=== PATIENT | female | born 1975 | race Caucasian/White ===

== ENCOUNTER 2019-06-12 07:56 | Outpatient (CLI) | payer BC, SELFPAY ==
[2019-06-12 09:29] LABS: ALT 10 U/L (14-59); AST 12 U/L (15-37); Albumin 3.3 g/dL (3.4-5.0); Alkaline Phosphatase 89 U/L (46-116); Anion Gap 8.8 mmol/L (3-11); BUN 9 mg/dL (7-18); Bilirubin, Total 0.2 mg/dL (0.2-1.0); CO2 28.2 mmol/L (21.0-32.0); CREATININE 0.77 mg/dL (0.55-1.02); Calcium 8.5 mg/dL (8.5-10.1); Calculated LDL 104 mg/dL (<100); Chloride 104 mmol/L (98-107); Cholesterol 188 mg/dL (<200); Glucose 89 mg/dL (74-106); HDL Cholesterol 67 mg/dL (40-60); Potassium 4.3 mmol/L (3.5-5.1); Sodium 141 mmol/L (136-145); TSH (W/Ref FT4) 2.17 uIU/mL (0.36-3.74); Total Protein 6.6 g/dL (6.4-8.2); Triglyceride 85 mg/dL (<150)
== END 2019-06-12 08:16 ==
PROVIDERS: PCP Student in an Organized Health Care Education/Training Program; Visit Provider Student in an Organized Health Care Education/Training Program
DX: E86.0 Dehydration (principal); I10 Essential (primary) hypertension; E03.9 Hypothyroidism, unspecified; Z13.220 Encounter for screening for lipoid disorders
CPT/HCPCS: 36415; 80053; 80061; 84443

== ENCOUNTER 2020-02-27 02:21 | Outpatient (CLI) | payer BC, SELFPAY ==
[2020-03-01 23:19] LABS: Patient Race White; SARS-CoV-2 RNA Undetected (Undetected); SARS-CoV-2 Specimen Source Nasal
== END 2020-02-27 02:41 ==
PROVIDERS: PCP Student in an Organized Health Care Education/Training Program; Visit Provider Student in an Organized Health Care Education/Training Program
DX: R06.2 Wheezing (principal)
CPT/HCPCS: U0003

== ENCOUNTER 2020-09-03 02:00 | Outpatient (CLI) | payer BC, SELFPAY ==
[2020-09-03 13:40] LABS: Calculated LDL 101 mg/dL (<100); Cholesterol 192 mg/dL (<200); HDL Cholesterol 79 mg/dL (40-60); Triglyceride 63 mg/dL (<150)
== END 2020-09-03 02:01 | disposition home or self-care (01) ==
LOC: LBO 02:00
PROVIDERS: PCP Student in an Organized Health Care Education/Training Program; Visit Provider Student in an Organized Health Care Education/Training Program
DX: E03.9 Hypothyroidism, unspecified (principal); Z13.220 Encounter for screening for lipoid disorders
CPT/HCPCS: 36415; 80061; 84443

== ENCOUNTER 2020-12-09 12:00 | Outpatient (REF) | payer BC, SELFPAY ==
--- NOTE | 2020-12-09 10:45 | PAPFT_PTH ---
PATIENT: Tatiana Reilly LOC: [facility] U#:[id number] AGE/SX: 45/F ROOM: RE12/09/[address]: FALLON Reis : 1975 BED: DIS: 12/09/2020 SPEC #: [id number] RECD: 12/09/20 13:16 STATUS: NNEKA REMonica #: [id number] FLOR: 12/09/20 10:[address]: Skylar Miller DEPT: PENDING SALE TO [facility] Cytology RECD BY: Marsha Julio ENTERED: 12/09/20 13:17 SP TYPE: PAPFT OTHR DR: Jaleesa Zamora, Tissues: 1 - CX/ENDOCX FOR PAP SMEARS Procedures: PAP THIN PREP/UVM Screening HPV DNA PROBE Comments: [id number]
== END 2020-12-09 12:01 | disposition home or self-care (01) ==
LOC: LBN 12:00
PROVIDERS: PCP Student in an Organized Health Care Education/Training Program; Visit Provider Nurse Practitioner Family
DX: Z12.4 Encounter for screening for malignant neoplasm of cervix (principal); Z11.51 Encounter for screening for human papillomavirus (HPV)
CPT/HCPCS: 88142; 87624

== ENCOUNTER 2020-12-10 01:41 | Outpatient (CLI) | payer BC, SELFPAY ==
--- NOTE | 2020-12-10 13:00 | NS.NUTBLAN_ITS ---
Tatiana was referred to Medical Nutrition Therapy for weight management. 5'2 225 lbs BMI 40. Tatiana reports gaining > 40 lbs in last couple years since starting meds for her bipolar disease. Meds include seroquel, trileptal, lamictal. Also takes levothyroxine for hypothyroidism. Recently dx with HTN. Diet recall indicates mostly well balanced healthy meals with sedentary life style. Goal Wt: 170-175 lbs. Session today focused on how to follow a lower carb, higher protein diet to help promote weight loss. Suspect insulin resistance may be causing excess weight after starting bi polar meds known to affect glycemic variabls. Provided meal plan and encouraged Tatiana to log her meals on a phone madelyn. Goal is for 5-10 lbs per week by following [id number] kcal, 80-100 g carb, 60-70 g protein diet with 14 miles of waking per week. No follow up planned. Will call Tatiana next month for update on progress.
== END 2020-12-10 01:42 | disposition home or self-care (01) ==
LOC: DS 01:41
PROVIDERS: PCP Student in an Organized Health Care Education/Training Program; Visit Provider Dietitian, Registered
DX: E66.8 Other obesity (principal); F31.9 Bipolar disorder, unspecified; Z79.899 Other long term (current) drug therapy; Z68.41 Body mass index [BMI] 40.0-44.9, adult; Z71.3 Dietary counseling and surveillance
CPT/HCPCS: 97802

== ENCOUNTER 2021-01-05 02:15 | Outpatient (CLI) | payer BC, SELFPAY ==
--- NOTE | 2021-01-05 11:09 | DI.MAMMO_ITS ---
Exam(s) MAMMO SCREENING EXAM: MAMMO SCREENING CLINICAL HISTORY: screening. TECHNIQUE: Bilateral full field digital CC and MLO mammographic images were obtained with 3D tomosyn thesis and utilizing computer aided detection (CAD). COMPARISON: None. This is a baseline mammogram on this 45-year-old patient FINDINGS: There are no significant radiograph findings in left breast. In the right breast posteriorly there is a spiculated density located approximately 16 cm in from the nipple. Requires spot compression view possible ultrasound There are no malignant-appearing microcalcification groups in this region or elsewhere in either [address]. There is no significant architectural distortion nor skin thickening-retraction. IMPRESSION: No radiographic evidence of malignancy in left breast. Asymmetric density posteriorly in the right breast which require spot compression view and possible u ltrasound BI-RADS Category 0 - Assessment Incomplete: Need additional imaging evaluation Breast Density - Category B - Scattered areas of fibroglandular density Breast density Category C or D implies that the patient has dense breast tissue. Dense breast tissue can make it harder to find cancer on a mammogram. Dense breast tissue is also associated with an incr eased risk of breast cancer. This information about the result of the mammogram report was provided to the patient to raise their awareness. Use this report when you speak with the patient about their risks for breast cancer, which includes their family history. At that time, you may recommend additional screening tests (Ultrasoun d or MRI) as these tests may add significant information. A negative radiographic report should not delay biopsy if a dominant or clinically suspicious mass is present. Up to ten percent of cancers are not identified on mammography. A negative report may reinforce clinical impression. Adenosis and dense breasts may obscure an underlying neoplasm. False positive reports average 6 to 10%. Patient will receive a letter notifying them of these results.
== END 2021-01-05 02:35 ==
PROVIDERS: PCP Student in an Organized Health Care Education/Training Program; Visit Provider Nurse Practitioner Family
DX: Z12.31 Encounter for screening mammogram for malignant neoplasm of breast (principal); R92.8 Other abnormal and inconclusive findings on diagnostic imaging of breast
CPT/HCPCS: 77063; 77067

== ENCOUNTER 2021-01-11 10:50 | Outpatient (REF) | payer BC, SELFPAY | END 2021-01-11 10:51 | disposition home or self-care (01) | LOC: LBN 10:50 | PROVIDERS: PCP Student in an Organized Health Care Education/Training Program; Visit Provider Student in an Organized Health Care Education/Training Program | DX: R39.15 Urgency of urination; R82.998 Other abnormal findings in urine | CPT/HCPCS: 87086 ==

== ENCOUNTER 2021-01-18 01:15 | Outpatient (CLI) | payer BC, SELFPAY ==
--- NOTE | 2021-01-18 | DI.MAMMO_ITS ---
Exam(s) MAMMO SCREEN CALL BACK UNI EXAM: MAMMO SCREEN CALL BACK UNI-RIGHT CLINICAL HISTORY: F/U ABNL MAMMO, R92.8,RT ASYMMETRIC DENSITY. TECHNIQUE: Unilateral spot mammographic images obtained with 3D tomosynthesisand utilizing computer aided detection (CAD). . COMPARISON: Prior mammograms were reviewed. This additional imaging was performed due to findings described on the recent screening mammogram of . FINDINGS: Additional mammographic views performed todayrender this area less concerning. IMPRESSION: No radiographic evidence of malignancy. Appropriate follow-up is repeat right breast mammogram in 6 months. The patient was informed of these findings and recommendations prior to leaving the department today. BI-RADS Category 3 - 6 month - Probably Benign Finding: Recommend follow-up mammography in 6 months Breast Density - Category B - Scattered areas of fibroglandular density Breast density Category C or D implies that the patient has dense breast tissue. Dense breast tissue can make it harder to find cancer on a mammogram. Dense breast tissue is also associated with an incr eased risk of breast cancer. This information about the result of the mammogram report was provided to the patient to raise their awareness. Use this report when you speak with the patient about their risks for breast cancer, which includes their family history. At that time, you may recommend additional screening tests (Ultrasoun d or MRI) as these tests may add significant information. A negative radiographic report should not delay biopsy if a dominant or clinically suspicious mass is present. Up to ten percent of cancers are not identified on mammography. A negative report may reinforce clinical impression. Adenosis and dense breasts may obscure an underlying neoplasm. False positive reports average 6 to 10%. Patient will receive a letter notifying them of these results.
--- NOTE | 2021-01-18 | DI.US_ITS ---
Exam(s) US BREAST RT COMPLETE EXAM: US BREAST RT COMPLETE CLINICAL HISTORY: F/U ABN MAMMO, RT ASYMMETRIC DENSITY. TECHNIQUE: Complete ultrasound of the right breast was performed including all 4 quadrants, the retr oareolar region, and the ipsilateral axilla. COMPARISON: Prior baseline mammogram of 01/05/2021 was reviewed. Today's spot compression view was also reviewed FINDINGS: There are no ultrasound findings to correspond to the asymmetric density seen posteriorly in the righ t breast on the recent mammogram (which also appears somewhat less concerning on today's dedicated sp ot compression 3D mammographic view). No evidence of cyst and no ominous solid mass evident. Few benign-appearing lymph nodes are noted in the axilla. IMPRESSION: No significant ultrasound findings to correspond to the finding on the mammogram. Today's additional spot mammographic view was also less concerning. Appropriate follow-up is repeat right breast MAMMOGRAM in 6 months, with earlier imaging if a self de tected breast changes noted.. BI-RADS Category 3 - 6 month - Probably Benign Finding: Recommend follow-up mammography in 6 months Breast Density - Category B - Scattered areas of fibroglandular density Breast density Category C or D implies that the patient has dense breast tissue. Dense breast tissue can make it harder to find cancer on a mammogram. Dense breast tissue is also associated with an incr eased risk of breast cancer. This information about the result of the mammogram report was provided to the patient to raise their awareness. Use this report when you speak with the patient about their risks for breast cancer, which includes their family history. At that time, you may recommend additional screening tests (Ultrasoun d or MRI) as these tests may add significant information. A negative radiographic report should not delay biopsy if a dominant or clinically suspicious mass is present. Up to ten percent of cancers are not identified on mammography. A negative report may reinforce clinical impression. Adenosis and dense breasts may obscure an underlying neoplasm. False positive reports average 6 to 10%. Patient will receive a letter notifying them of these results.
== END 2021-01-18 01:35 ==
PROVIDERS: PCP Student in an Organized Health Care Education/Training Program; Visit Provider Nurse Practitioner Family
DX: R92.8 Other abnormal and inconclusive findings on diagnostic imaging of breast (principal)
CPT/HCPCS: 76642; 77063; 77067

== ENCOUNTER 2021-01-18 03:38 | Outpatient (CLI) | payer BC, SELFPAY ==
[2021-01-18 09:26] LABS: Abs Immature Grans 0.02 10^3/uL (0.0-0.06); Absolute Basophil Count 0.03 10^3/uL (0.0-0.2); Absolute Eosinophil Count 0.18 10^3/uL (0.0-0.7); Absolute Lymphocyte Count 2.43 10^3/uL (1.2-3.4); Absolute Monocyte Count 0.49 10^3/uL (0.1-0.8); Absolute Neutrophil Count 4.17 10^3/uL (1.2-6.7); Basophils % 0.4; Eosinophils % 2.5; HCT 35.5 % (36.0-46.0); HGB 11.7 g/dL (11.2-15.7); Immature Grans % 0.3; Lymphocytes % 33.2; MCH 30.6 pg (27.0-33.0); MCV 92.9 fL (80-95); MPV 8.7 fL (8.0-11.0); Monocytes % 6.7; Neutrophils % 56.9; Nucleated RBC 0 %; Platelet Count 324 10^3/uL (130-400); RBC 3.82 10^6/uL (3.93-5.22); RDW 12.3 % (11.7-14.6); RDW-SD 42.2 fL; WBC 7.32 10^3/uL (4.4-10.8)
[2021-01-18 10:31] LABS: ALT 18 U/L (14-59); AST 14 U/L (15-37); Albumin 3.5 g/dL (3.4-5.0); Alkaline Phosphatase 81 U/L (46-116); Anion Gap 7.2 mmol/L (3-11); BUN 8 mg/dL (7-18); Bilirubin, Total 0.2 mg/dL (0.2-1.0); CO2 28.8 mmol/L (21.0-32.0); CREATININE 0.8 mg/dL (0.55-1.02); Calcium 8.6 mg/dL (8.5-10.1); Chloride 95 mmol/L (98-107); Glucose 91 mg/dL (74-106); Potassium 4.4 mmol/L (3.5-5.1); Sodium 131 mmol/L (136-145); Total Protein 6.8 g/dL (6.4-8.2)
== END 2021-01-18 03:39 | disposition home or self-care (01) ==
LOC: LBO 03:38
PROVIDERS: PCP Student in an Organized Health Care Education/Training Program; Visit Provider Student in an Organized Health Care Education/Training Program
DX: R03.0 Elevated blood-pressure reading, without diagnosis of hypertension; R39.89 Other symptoms and signs involving the genitourinary system; B99.9 Unspecified infectious disease
CPT/HCPCS: 36415; 80053; 85025; 87086

== ENCOUNTER 2021-01-18 13:01 | Outpatient (CLI) | payer BC, SELFPAY ==
--- NOTE | 2021-01-18 11:00 | NS.NUTBLAN_ITS ---
David returned for Medical Nutrition Therapy for weight management. 5'2 215 lbs, has lost 4 lbs in last 6 weeks, BMI 40. David reports following a lower carb diet and logging her meals on a phone madelyn. She has changed a lot of meals to include more complex carbs, lean protein and healthy fats. She has not started a routine exercise program. Session today focused on importance of exercise in continued weight loss. Goal is for 1 lbs weight loss per week with goal weight of 170 lbs. David is not interested in weight loss surgery as an option for weight loss. Follow up appt. scheduled for 03/21/21 at 11 am.
== END 2021-01-18 13:02 | disposition home or self-care (01) ==
LOC: DS 13:03
PROVIDERS: PCP Student in an Organized Health Care Education/Training Program; Visit Provider Dietitian, Registered
DX: E66.8 Other obesity (principal); Z68.41 Body mass index [BMI] 40.0-44.9, adult; Z71.3 Dietary counseling and surveillance
CPT/HCPCS: 97803

== ENCOUNTER 2021-02-10 02:58 | Outpatient (CLI) | payer BC, SELFPAY ==
[2021-02-10 12:43] LABS: HCT 36.6 % (36.0-46.0); HGB 12.1 g/dL (11.2-15.7); MCHC 33.1 % (32.0-36.0); MCV 90.8 fL (80-95); Platelet Count 296 10^3/uL (130-400); RBC 4.03 10^6/uL (3.93-5.22); RDW 11.9 % (11.7-14.6); RDW-SD 39.8 fL; WBC 7.78 10^3/uL (4.4-10.8)
[2021-02-10 12:48] LABS: Bilirubin Negative (Negative); Blood Small (Negative); Clarity Sl Cloudy (Clear); Glucose Negative (Negative); Ketones Negative (Negative); Leukocyte Esterase Trace (Negative); Nitrite Negative (Negative); Specific Gravity 1.025 (1.005-1.025); Urobilinogen 0.2 EU/dL (Up TO 0.2)
[2021-02-10 12:58] LABS: Bacteria Rare HPF (Negative); C & S Indicated? No/Sq. Contamination; Casts Negative LPF (Negative); Crystals Negative HPF (Negative); Epithelial Cells Many HPF (Negative); Mucus Negative (Negative)
[2021-02-10 14:14] LABS: Iron 82 ug/dL (50-170); Total Iron Binding Capacity 267 ug/dL (250-450); Transferrin Sat 31 % (15-50)
[2021-02-10 14:22] LABS: Anion Gap 9.5 mmol/L (3-11); BUN 7 mg/dL (7-18); CO2 26.5 mmol/L (21.0-32.0); CREATININE 0.7 mg/dL (0.55-1.02); Calcium 8.4 mg/dL (8.5-10.1); Chloride 92 mmol/L (98-107); Ferritin 49 ng/mL (8-252); Glucose 121 mg/dL (74-106); Potassium 4.3 mmol/L (3.5-5.1); Sodium 128 mmol/L (136-145)
[2021-02-11 12:02] LABS: Sodium, Urine 21 mmol/L
[2021-02-11 16:40] LABS: Osmolality, Urine 522 mOsm/kg (150-1,150)
[2021-02-11 17:26] LABS: Osmolality Serum 260 mOsm/kg (275-295)
== END 2021-02-10 02:59 | disposition home or self-care (01) ==
LOC: LBO 02:58
PROVIDERS: PCP Student in an Organized Health Care Education/Training Program; Visit Provider Student in an Organized Health Care Education/Training Program
DX: E87.1 Hypo-osmolality and hyponatremia (principal)
CPT/HCPCS: 36415; 80048; 83935; 85027; 81003; 81015; 82728; 83540; 83550; 83930; 84300

== ENCOUNTER 2021-02-25 03:29 | Outpatient (CLI) | payer BC, SELFPAY ==
[2021-02-25 10:45] LABS: Sodium, Urine 23 mmol/L
[2021-02-25 10:47] LABS: Anion Gap 8.1 mmol/L (3-11); BUN 9 mg/dL (7-18); CO2 28.9 mmol/L (21.0-32.0); CREATININE 0.7 mg/dL (0.55-1.02); Calcium 8.8 mg/dL (8.5-10.1); Chloride 99 mmol/L (98-107); Glucose 117 mg/dL (74-106); Potassium 3.9 mmol/L (3.5-5.1); Sodium 136 mmol/L (136-145)
[2021-02-25 10:51] LABS: Iron 76 ug/dL (50-170)
[2021-02-25 22:08] LABS: Osmolality Serum 276 mOsm/kg (275-295)
== END 2021-02-25 03:30 | disposition home or self-care (01) ==
LOC: LBO 03:29
PROVIDERS: PCP Student in an Organized Health Care Education/Training Program; Visit Provider Student in an Organized Health Care Education/Training Program
DX: E87.1 Hypo-osmolality and hyponatremia (principal); D64.9 Anemia, unspecified; R03.0 Elevated blood-pressure reading, without diagnosis of hypertension
CPT/HCPCS: 36415; 80048; 83540; 83930; 84300

== ENCOUNTER 2021-03-10 00:08 | Outpatient (CLI) | payer BC, SELFPAY ==
--- NOTE | 2021-03-10 09:30 | DI.US_ITS ---
Exam(s) US PELVIS EXAM: US PELVIS CLINICAL HISTORY: eval for pathology 2' fullness/rt-side pain,r10.2,r35.0 TECHNIQUE: Ultrasound of the pelvis was performed transabdominal only. COMPARISON: US US BREAST RT COMPLETE from 01/18/2021 FINDINGS: UTERUS: Nongravid and anteverted Measures 7.8 cm length x 3.5 cm AP x 4.0 cm wide. There are no uterine fibroids. Endometrial thickness measures 4 mm. There is no fluid in the endometrial canal. CERVIX: There are no obvious nabothian cysts. RIGHT OVARY: Measures 2.3 x 1.9 x 1.6 cm No significant cysts nor masses evident in the right ovary. LEFT OVARY: Measures 2.5 x 2.0 x 1.6 cm No significant cysts nor masses evident in the left ovary. CUL-DE-SAC: No free fluid evident. IMPRESSION: 1. Normal appearing uterus and age-appropriate endometrium evident on this transabdominal pelvic ultr asound examination. 2. No abnormal ovarian findings. 3. No free fluid evident in the adnexal regions and cul-de-sac. DATA REPOSITORY:
[2021-03-10 18:38] LABS: Osmolality, Urine 754 mOsm/kg (150-1,150)
== END 2021-03-10 00:28 ==
PROVIDERS: PCP Student in an Organized Health Care Education/Training Program; Visit Provider Student in an Organized Health Care Education/Training Program
DX: E87.1 Hypo-osmolality and hyponatremia (principal); R10.2 Pelvic and perineal pain; R35.0 Frequency of micturition
CPT/HCPCS: 83935; 76856

== ENCOUNTER 2021-03-11 04:06 | Outpatient (CLI) | payer BC, SELFPAY ==
[2021-03-11 14:32] LABS: ALT 46 U/L (14-59); AST 46 U/L (15-37); Albumin 3.6 g/dL (3.4-5.0); Alkaline Phosphatase 107 U/L (46-116); Anion Gap 7.5 mmol/L (3-11); BUN 9 mg/dL (7-18); Bilirubin, Total 0.2 mg/dL (0.2-1.0); CO2 28.5 mmol/L (21.0-32.0); CREATININE 0.6 mg/dL (0.55-1.02); Calcium 8.6 mg/dL (8.5-10.1); Chloride 97 mmol/L (98-107); Glucose 86 mg/dL (74-106); Potassium 4.6 mmol/L (3.5-5.1); Sodium 133 mmol/L (136-145); Total Protein 6.7 g/dL (6.4-8.2)
== END 2021-03-11 04:07 | disposition home or self-care (01) ==
LOC: LBO 04:06
PROVIDERS: PCP Student in an Organized Health Care Education/Training Program; Visit Provider Student in an Organized Health Care Education/Training Program
DX: E87.1 Hypo-osmolality and hyponatremia (principal)
CPT/HCPCS: 36415; 80053

== ENCOUNTER 2021-04-14 04:31 | Outpatient (CLI) | payer BC, SELFPAY | END 2021-04-14 04:32 | disposition home or self-care (01) | LOC: DS 04:31 | PROVIDERS: PCP Student in an Organized Health Care Education/Training Program; Visit Provider Dietitian, Registered ==

== ENCOUNTER 2021-06-01 01:50 | Outpatient (CLI) | payer BC, SELFPAY ==
[2021-06-01 10:32] LABS: Hemoglobin A1C 5.6 % (<5.7)
[2021-06-01 11:15] LABS: Anion Gap 5.2 mmol/L (3-11); BUN 13 mg/dL (7-18); CO2 29.8 mmol/L (21.0-32.0); CREATININE 0.8 mg/dL (0.55-1.02); Calcium 8.7 mg/dL (8.5-10.1); Calculated LDL 150 mg/dL (<100); Chloride 104 mmol/L (98-107); Cholesterol 229 mg/dL (<200); Glucose 87 mg/dL (74-106); HDL Cholesterol 66 mg/dL (40-60); Potassium 4.7 mmol/L (3.5-5.1); Sodium 139 mmol/L (136-145); Triglyceride 69 mg/dL (<150)
== END 2021-06-01 01:51 | disposition home or self-care (01) ==
LOC: LBO 01:50
PROVIDERS: PCP Student in an Organized Health Care Education/Training Program; Visit Provider Student in an Organized Health Care Education/Training Program
DX: R03.0 Elevated blood-pressure reading, without diagnosis of hypertension (principal); Z13.220 Encounter for screening for lipoid disorders; E87.1 Hypo-osmolality and hyponatremia; E03.9 Hypothyroidism, unspecified; R73.02 Impaired glucose tolerance (oral); T50.905A Adverse effect of unspecified drugs, medicaments and biological substances, initial encounter; Z79.899 Other long term (current) drug therapy
CPT/HCPCS: 36415; 80048; 80061; 83036; 84443

== ENCOUNTER 2024-10-21 03:41 | Outpatient (CLI) | payer BC, SELFPAY ==
[2024-10-21 14:40] LABS: Lithium 1.4 mmol/L (0.6-1.2)
== END 2024-10-21 03:42 | disposition home or self-care (01) ==
LOC: LOS 03:41
PROVIDERS: Visit Provider Student in an Organized Health Care Education/Training Program
DX: F31.73 Bipolar disorder, in partial remission, most recent episode manic (principal); Z79.899 Other long term (current) drug therapy
CPT/HCPCS: 36415; 80178

== ENCOUNTER 2024-10-30 02:51 | Outpatient (CLI) | payer BC, SELFPAY ==
[2024-10-30 10:52] LABS: Lithium 1.3 mmol/L (0.6-1.2)
== END 2024-10-30 02:52 | disposition home or self-care (01) ==
PROVIDERS: Visit Provider Student in an Organized Health Care Education/Training Program
DX: F31.73 Bipolar disorder, in partial remission, most recent episode manic (principal); Z79.899 Other long term (current) drug therapy
CPT/HCPCS: 36415; 80178

== ENCOUNTER 2024-11-06 02:40 | Outpatient (CLI) | payer BC, SELFPAY ==
[2024-11-06 11:24] LABS: Lithium 1.1 mmol/L (0.6-1.2)
== END 2024-11-06 02:41 | disposition home or self-care (01) ==
PROVIDERS: Visit Provider Student in an Organized Health Care Education/Training Program
DX: Z51.81 Encounter for therapeutic drug level monitoring (principal); Z79.899 Other long term (current) drug therapy
CPT/HCPCS: 36415; 80178

== ENCOUNTER 2025-01-14 03:37 | Outpatient (CLI) | payer BC, SELFPAY ==
[2025-01-14 10:09] LABS: Abs Immature Grans 0.04 10^3/uL (0.0-0.06); HCT 38.5 % (36.0-46.0); HGB 12.1 g/dL (11.2-15.7); Immature Grans % 0.4 %; MCH 30.3 pg (27.0-33.0); MCHC 31.4 % (32.0-36.0); MCV 96 fL (80-95); MPV 8.9 fL (8.0-11.0); Platelet Count 341 10^3/uL (130-400); RBC 4.00 10^6/uL (3.93-5.22); RDW 12.5 % (11.7-14.6); RDW-SD 44.5 fL; WBC 9.68 10^3/uL (4.4-10.8)
[2025-01-14 10:29] LABS: Hemoglobin A1C 5.0 % (<5.7)
[2025-01-14 10:58] LABS: Lithium 0.9 mmol/L (0.6-1.2)
[2025-01-14 11:23] LABS: ALT 15 U/L (14-59); AST 22 U/L (15-37); Albumin 3.6 g/dL (3.4-5.0); Alkaline Phosphatase 86 U/L (46-116); Anion Gap 9.8 mmol/L (3-11); BUN 13 mg/dL (7-18); Bilirubin, Total 0.3 mg/dL (0.2-1.0); CO2 27.2 mmol/L (21.0-32.0); Calcium 9.1 mg/dL (8.5-10.1); Calculated LDL 162 mg/dL (<100); Chloride 104 mmol/L (98-107); Cholesterol 247 mg/dL (<200); Estimated GFR 78.37 (mL/min/1.73m2); Glucose 98 mg/dL (74-106); HDL Cholesterol 62 mg/dL (>or=50); Potassium 4.0 mmol/L (3.5-5.1); Sodium 141 mmol/L (136-145); TSH 1.53 uIU/mL (0.36-3.74); Total Protein 7.1 g/dL (6.4-8.2); Triglyceride 119 mg/dL (<150)
== END 2025-01-14 03:38 | disposition home or self-care (01) ==
LOC: LBO 03:37
PROVIDERS: Visit Provider Student in an Organized Health Care Education/Training Program
DX: Z79.899 Other long term (current) drug therapy (principal); F31.75 Bipolar disorder, in partial remission, most recent episode depressed
CPT/HCPCS: 36415; 80053; 80061; 80178; 83036; 84443; 85025

== ENCOUNTER 2025-01-21 12:11 | Outpatient (REF) | payer BC, SELFPAY | END 2025-01-21 12:12 | disposition home or self-care (01) | LOC: LBN 12:11 | PROVIDERS: Visit Provider Obstetrics & Gynecology | DX: Z12.4 Encounter for screening for malignant neoplasm of cervix (principal) | CPT/HCPCS: 88142; 87624 ==

== ENCOUNTER 2025-02-03 01:17 | Outpatient (CLI) | payer BC, SELFPAY ==
[2025-02-03 11:48] LABS: Lithium 1.0 mmol/L (0.6-1.2)
== END 2025-02-03 01:18 | disposition home or self-care (01) ==
PROVIDERS: Visit Provider Student in an Organized Health Care Education/Training Program
DX: Z79.899 Other long term (current) drug therapy (principal); F31.75 Bipolar disorder, in partial remission, most recent episode depressed
CPT/HCPCS: 36415; 80178

== ENCOUNTER → 2025-03-09 03:45 | Outpatient (CLI) | payer BC, SELFPAY ==
--- NOTE | 2025-03-09 12:45 | DI.MAMMO_ITS ---
Exam(s) MAMMO SCREENING EXAM: MAMMO SCREENING CLINICAL HISTORY: screening,z12.39. TECHNIQUE: Bilateral full field digital CC and MLO mammographic images were obtained with 3D tomosynthesis and utilizing computer aided detection (CAD). COMPARISON: Prior outside mammograms were reviewed. FINDINGS: There has been no significant change in the appearance and distribution of the fibroglandular tissue. There are no new spiculated masses nor malignant appearing microcalcification groups. There is no significant architectural distortion nor skin thickening-retraction. IMPRESSION: No radiographic evidence of malignancy. BI-RADS Category 1 - Negative Breast Density - Category B - There are scattered areas of fibroglandular density. Breast density Category C or D implies that the patient has dense breast tissue. Dense breast tissue can make it harder to find cancer on a mammogram. Dense breast tissue is also associated with an increased risk of breast cancer. This information about the result of the mammogram report was provided to the patient to raise their awareness. Use this report when you speak with the patient about their risks for breast cancer, which includes their family history. At that time, you may recommend additional screening tests (Ultrasound or MRI) as these tests may add significant information. A negative radiographic report should not delay biopsy if a dominant or clinically suspicious mass is present. Up to ten percent of cancers are not identified on mammography. A negative report may reinforce clinical impression. Adenosis and dense breasts may obscure an underlying neoplasm. False positive reports average 6 to 10%. Patient will receive a letter notifying them of these results.
== END ==
LOC: DI 03:45
PROVIDERS: PCP Nurse Practitioner Family; Visit Provider Obstetrics & Gynecology
DX: Z12.31 Encounter for screening mammogram for malignant neoplasm of breast (principal)
CPT/HCPCS: 77063; 77067